=== PATIENT | male | born 1995 | race Caucasian/White ===

== ENCOUNTER 2021-07-12 18:06 | Emergency (ER) | payer BC ==
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
[2021-07-12 18:21] VITALS: BP 173/95; PULSE 95; O2SAT 99
[2021-07-12] MEDS ORDERED: ZOFRAN ODT 4 MG ONE (18:28)
[2021-07-12] MEDS ORDERED: Hydromorphone 1 mg/ml Injection ONE ×2 (18:28→19:40)
[2021-07-12] MEDS: ZOFRAN ODT 4 MG PO ONE (18:29)
[2021-07-12] MEDS: Hydromorphone 1 mg/ml Injection IM ONE ×2 (18:29→19:41)
[2021-07-12] MEDS ORDERED: KEFLEX 500 MG ONE (19:31)
[2021-07-12] MEDS ORDERED: NORCO 5/325 MG ONE (19:31)
[2021-07-12] MEDS: KEFLEX 500 MG PO ONE (19:32)
[2021-07-12] MEDS: NORCO 5/325 MG PO ONE (19:32)
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
== END 2021-07-12 21:05 | disposition home or self-care (01) ==
LOC: ED 18:06
DX: S80.212A Abrasion, left knee, initial encounter (principal); S30.810A Abrasion of lower back and pelvis, initial encounter; S40.811A Abrasion of right upper arm, initial encounter; S00.81XA Abrasion of other part of head, initial encounter; V86.56XA Driver of dirt bike or motor/cross bike injured in nontraffic accident, initial encounter; M25.511 Pain in right shoulder; M25.521 Pain in right elbow; M25.531 Pain in right wrist; M79.641 Pain in right hand; Z79.891 Long term (current) use of opiate analgesic
CPT/HCPCS: 73000; 73030; 73060; 73080; 73090; 73130; 73630; 96372; 99284; J1170; Q0162; A9270-GY